=== PATIENT | male | born 1985 | race Two or more races ===

== ENCOUNTER 2024-10-02 02:25 | Emergency (ER) | payer OTHER ==
[~2024-10-02] VITALS: Ht 172.7 cm; Wt 74.8 kg
[2024-10-02] MEDS ORDERED: OZEMPIC0.25 MG/02 (02:41)
[2024-10-02] MEDS ORDERED: GLUMETZA500 MG (02:41)
[2024-10-02] MEDS ORDERED: TETANUS & DIPHTHERIA TOX,ADULT 0.5 ML VIAL IM STA (04:31)
[2024-10-02] MEDS ORDERED: CEFAZOLIN SODIUM 1,000 MG VIAL IM STA (04:31)
[2024-10-02] MEDS ORDERED: CEFAZOLIN SODIUM 1,000 MG VIAL ONE ×2 (04:34→04:37)
[2024-10-02] MEDS ORDERED: TETANUS DIPHTHERIA TOX. ADSOR 5 ML VIAL IM ONE (04:34)
== END 2024-10-02 05:43 | disposition home or self-care (01) ==
LOC: ER 02:27
DX: S01.81XA Laceration without foreign body of other part of head, initial encounter (principal); W19.XXXA Unspecified fall, initial encounter; Y93.89 Activity, other specified; Y92.091 Bathroom in other non-institutional residence as the place of occurrence of the external cause; Y99.8 Other external cause status
CPT/HCPCS: 12002; 90471; 90714; J1670